=== PATIENT | female | born 1970 | race Caucasian/White ===

== ENCOUNTER 2017-06-21 18:55 | Emergency (ER) | payer OTHER | END 2017-06-21 21:10 | disposition home or self-care (01) | LOC: E/R 21:10 → FTE 18:55 | DX: L24.3 Irritant contact dermatitis due to cosmetics (principal); E03.9 Hypothyroidism, unspecified | CPT/HCPCS: 99283; Z7502 ==

== ENCOUNTER 2017-07-06 12:19 | Emergency (ER) | payer OTHER ==
[2017-07-06 19:04] LABS: ADD MAN DIFF? NO
[2017-07-06 19:05] LABS: BASOPHILS % 0.5 % (0.0-2.0); EOSINOPHILS # 0.1 10^3/ul (0.0-0.5); EOSINOPHILS % 1.6 % (0.0-7.0); HEMATOCRIT 36.2 % (37.0-47.0); HEMOGLOBIN 12.1 g/dl (12.0-16.0); LYMPHOCYTES # 1.9 10^3/ul (0.8-2.9); MEAN CORPUSCULAR HEMOGLOBIN 29.6 pg (29.0-33.0); MEAN CORPUSCULAR HGB CONC 33.4 g/dl (32.0-37.0); MEAN CORPUSCULAR VOLUME 88.5 fl (82.0-101.0); MEAN PLATELET VOLUME 9.8 fl (7.4-10.4); MONOCYTE # 0.4 10^3/ul (0.3-0.9); MONOCYTES % 6.2 % (0.0-11.0); NEUTROPHIL # 3.9 10^3/ul (1.6-7.5); NEUTROPHILS % 61.5 % (39.0-77.0); PLATELET COUNT 286 10^3/UL (140-415); RED BLOOD COUNT 4.09 10^6/ul (4.20-5.40); RED CELL DISTRIBUTION WIDTH 13.7 % (11.5-14.5)
[2017-07-06 19:05] LABS: WHITE BLOOD COUNT 6.3 10^3/ul (4.8-10.8)
[2017-07-06 19:06] LABS: URINE BLOOD (Dip) POC Negative (NEGATIVE); URINE GLUCOSE (Dip) POC Negative (NEGATIVE); URINE KETONES (Dip) POC Trace (NEGATIVE); URINE LEUKOCYTE EST (Dip) POC Negative (NEGATIVE); URINE NITRITE (Dip) POC Negative (NEGATIVE); URINE TOTAL PROTEIN POC Negative (NEGATIVE)
[2017-07-06 19:28] LABS: ANION GAP 14 (8-16); BLOOD UREA NITROGEN 14 mg/dl (7-20); CALCIUM 9.2 mg/dl (8.4-10.2); CARBON DIOXIDE 29 mmol/L (21-31); CHLORIDE 107 mmol/L (97-110); CREATININE 0.66 mg/dl (0.44-1.00); GLUCOSE 95 mg/dl (70-220); POTASSIUM 3.6 mmol/L (3.5-5.1); SODIUM 146 mmol/L (135-144)
== END 2017-07-06 20:42 | disposition home or self-care (01) ==
LOC: FTE 20:42
DX: H81.10 Benign paroxysmal vertigo, unspecified ear (principal); E03.9 Hypothyroidism, unspecified
CPT/HCPCS: 70450; 80048; 81003; 84443; 85025; 99284-25

== ENCOUNTER 2018-01-03 18:59 | Emergency (ER) | payer OTHER ==
[2018-01-03] MEDS: DIPHENHYDRAMINE 50 MG INJ IM (23:28)
[2018-01-03] MEDS: DEXAMETHASONE 10 MG/ML 1 ML INJ IM (23:28)
[2018-01-03] MEDS: RANITIDINE 150 MG TAB PO (23:28)
== END 2018-01-04 01:53 | disposition home or self-care (01) ==
LOC: FTE 01-04 01:53
DX: L24.3 Irritant contact dermatitis due to cosmetics (principal); E03.9 Hypothyroidism, unspecified
CPT/HCPCS: 96372; 99284-25